=== PATIENT | male | born 1965 | race Caucasian/White ===

== ENCOUNTER 2020-11-04 15:55 | Emergency (ER) | payer OTHER ==
[~2020-11-04] VITALS: Ht 172.7 cm; Wt 86.2 kg
[2020-11-04] MEDS ORDERED: HYDROCODON-ACE1 EAC7 PO (17:43)
[2020-11-04 18:29] VITALS: BP 109/64
== END 2020-11-04 18:30 | disposition home or self-care (01) ==
LOC: M.ERS 15:55
DX: S92.002A Unspecified fracture of left calcaneus, initial encounter for closed fracture (principal); Z86.19 Personal history of other infectious and parasitic diseases; W11.XXXA Fall on and from ladder, initial encounter; Y93.89 Activity, other specified; Y92.89 Other specified places as the place of occurrence of the external cause; Y99.8 Other external cause status